=== PATIENT | female | born 1995 | race Caucasian/White ===

== ENCOUNTER 2019-06-03 19:52 | Emergency (ER) | payer BC ==
[~2019-06-03] VITALS: Ht 154.9 cm; Wt 47.0 kg
--- NOTE | 2019-06-03 20:03 | PHYS DOC ---
Past History Past Medical History: Constipation, UTI Adult General Chief Complaint Chief Complaint: ".. I ve been having some abd. pain problems...last week I had some bright red streaks in my stool.. and this lower Lt tenderness.... I have a GI apt this next week..... but pain is worse tonight..." HPI HPI Patient is a 23 year old female who presents with above hx and complaints of generalized abdomen pain. Patient does give history of bright red blood with stools last week. This problem has resolved and has normal colored stools now. Patient has been eating today, ,chicken nuggets lunch and a chicken sandwich at dinner. Patient works in a daycare. Patient has had a lot of urinary tract infections including one admission for urosepsis/pyelonephritis. Patient normally follows with Dr. Heart at [place]. She is 1 term 1. Patient states she's had increasing abdomen problems since Halloween. No history of colitis or Crohn's with her family members. No history of travel. No history of trauma. Patient denies any history immunosuppression. Patient just completed her period Review of Systems Review of Systems Constitutional: Denies fever or chills [] Eyes: Denies change in visual acuity, redness, or eye pain [] HENT: Denies nasal congestion or sore throat [] Respiratory: Denies cough or shortness of breath [] Cardiovascular: No additional information not addressed in HPI [] GI: Complaints of abdominal pain, nausea. Denies, vomiting, diarrhea []. Does have history of red streaks stools last week. : Denies dysuria or hematuria [] Musculoskeletal: Denies back pain or joint pain [] Integument: Denies rash or skin lesions [] Neurologic: Denies headache, focal weakness or sensory changes [] Endocrine: Denies polyuria or polydipsia [] All other systems were reviewed and found to be within normal limits, except as documented in this note. Family History Family History Noncontributory Current Medications Current Medications See nursing for home meds Allergies Allergies No known drug allergies Physical Exam Physical Exam Constitutional: Well developed, well nourished, moderate acute distress, non- toxic appearance. [] HENT: Normocephalic, atraumatic, bilateral external ears normal, oropharynx moist, no oral exudates, nose normal. [] Eyes: PERRLA, EOMI, conjunctiva normal, no discharge. [] Neck: Normal range of motion, no tenderness, supple, no stridor. [] Cardiovascular:Heart rate regular rhythm, no murmur [] Lungs & Thorax: Bilateral breath sounds clear to auscultation [] Abdomen: Bowel sounds normal, soft, generalized. In Umbilicus tenderness, has some rebound to left upper and mid abdomen, no masses, no pulsatile masses. Umbilicus scar. Very distended. Skin: Warm, dry, no erythema, no rash. [] Back: No tenderness, no CVA tenderness. [] Extremities: No tenderness, no cyanosis, no clubbing, ROM intact, no edema. [] No true psoas sign Neurologic: Alert and oriented X 3, normal motor function, normal sensory function, no focal deficits noted. [] Psychologic: Affect anxious, judgement normal, mood normal. [] EKG EKG [] Radiology/Procedures Radiology/[place] [address] IMAGING REPORT Signed PATIENT: LUCAS LYNN AACCOUNT: [id number] : 1995 LOCATION: ER AGE: 23 SEX: F EXAM STATUS: REG ER ORD. PHYSICIAN: DEREK BECKWITH MD REASON: pain, LLQ, BLOODY STOOL, X 1 WEEK AGO, OMNI 300, 75ml PROCEDURE: CT ABD PELV W/ORAL&IV CONTRAST Study: CT abdomen/pelvis with intravenous contrast Indication: Left lower quadrant pain. Bloody stools. Comparison: None. Technique: Helical CT imaging performed of the abdomen and pelvis after the intravenous administration of 75 cc Omnipaque 300 contrast. Sagittal and coronal reformats were obtained. One or more of the following individualized dose reduction techniques were utilized for this examination: 1. Automated exposure control 2. Adjustment of the mA and/or kV according to patient size 3. Use of iterative reconstruction technique. Findings: Unremarkable liver, gallbladder, pancreas, spleen and adrenal glands. Within the interpolar right kidney, 2 mm nonobstructing nephrolithiasis. No renal stone seen on the left. No hydroureteronephrosis. Unremarkable urinary bladder. Thickened endometrium which is not atypical given patient age. Collapsing ovarian cyst on the left, image 58 series 2. Unremarkable right adnexa. No discrete abnormality of the colon is identified to account for the patient's reported bloody stools. A portion of the appendix is believed to be seen along the dome of the uterus, image 55 series 2 and appears within normal limits. Orally administered contrast passes throughout the entirety of the small bowel without obstruction. The stomach is distended with ingested material. There are scattered loops of small bowel which are thick walled such as at the mid abdomen on image 33 series 2. Unremarkable major vascular structures. Free fluid in the pelvis and measures intermediate in density between 20 and 30 Hounsfield units however streak artifact from wires external to the patient may alter measurements. No free air. Unremarkable body wall soft tissues. Unremarkable osseous structures. Impression: 1. Small to moderate volume free fluid within the pelvis which measures intermediate density however accurate measuring of density is slightly degraded due to streak artifact from wires along the anterior aspect of the body. Given the presence of a collapsing cystic structure within the left ovary, a ruptured hemorrhagic cyst is a consideration. As clinically warranted, pelvic sonography could be performed to evaluate for the complexity of this fluid. 2. No colonic abnormality seen to account for the patient's reported bloody stools. Note is made that there is wall thickening of scattered loops of small bowel. This could be within the broad range of normal for this patient or represent a nonspecific enteritis. No obstruction or perforation. 3. Nonobstructing 2 mm interpolar nephrolithiasis on the right. Electronically signed by: RODOLFO POST MD (06/03/2019 11:37 PM) [facility] DICTATED AND SIGNED BY: RODOLFO POST MD DATE: 06/03/19 7822 CC: DEREK BECKWITH MD; CIRO ZHOU APRN ~ [address] [address] IMAGING REPORT Signed PATIENT: LUCAS LYNN AACCOUNT: [id number] : 1995 LOCATION: ER AGE: 23 SEX: F EXAM STATUS: REG ER ORD. PHYSICIAN: DEREK BECKWITH MD REASON: pain PROCEDURE: ACUTE ABDOMEN SERIES Study: ACUTE ABDOMEN SERIES Indication: Pain. Comparison: None. Findings: The lung quintero are clear. Unremarkable cardiomediastinal silhouette. Nonobstructive bowel gas pattern. Prominent amount of well-formed stool seen at the left upper quadrant. Impression: 1. Nonobstructive bowel gas pattern. 2. Prominent amount of well-formed stool seen at the left upper quadrant. Electronically signed by: RODOLFO POST MD (06/03/2019 10:31 PM) [facility] DICTATED AND SIGNED BY: RODOLFO POST MD DATE: 06/03/192230 Course & Med Decision Making Course & Med Decision Making Pertinent Labs and Imaging studies reviewed. (See chart for details) [ CC: DEREK BECKWITH MD; CIRO ZHOU DRAWING PRESS OPERATOR ~ 1. Abdomen Pain[] 2. Anemia hemoglobin 11.7 with microcytic hypochromic indices 70/22] 3. Constipation 4. Lt. Hemorrhagic Ovarian Cyst Pt . to stay on clear fluid diet only x 48 hrs. No solids or milk products. Push fluids. Show expect some cramping and diarrhea with passage of stool. Follow up with primary. Re-exam if no improvement of pain. Consider LEAF [employer] SCRAPER/ OB consult for Ovarian cyst and possible US. Push fluids is a must. Tylenol and Ibuprofen for pain. Must follow up. Dragon Disclaimer Dragon Disclaimer This electronic medical record was generated, in whole or in part, using a voice recognition dictation system. Departure Departure: Disposition: 01 HOME/RESIDENCE PRIOR TO ADM Condition: STABLE Scripts Hydrocodone/Ibuprofen (HYDROCODONE-IBUPROFEN 7.5-200 ) 1 Each Tablet 1 TAB PO PRN Q6HRS PRN for PAIN, #30 TAB 0 Refills Prov: DEREK BECKWITH MD 06/04/19 Dragmayank Disclaimer This chart was dictated in whole or in part using Voice Recognition software in a busy, high-work load, and often noisy Emergency Department environment. It may contain unintended and wholly unrecognized errors or omissions. DEREK BECKWITH MD Jun 03, 2019 20:03
[2019-06-03] MEDS ORDERED: IV RINGERS SOLUTION,LACTATED 1,000 ML IV SCH (20:35)
[2019-06-03] MEDS ORDERED: ONDANSETRON PF 4 MG/2 ML VIAL. IVP ONE ×2 (20:45→23:30)
[2019-06-03] MEDS ORDERED: FAMOTIDINE 20 MG/2 ML VIAL IVP ONE (20:45)
[2019-06-03 20:51] LABS: BASO # 0.1 x10^3/uL (0.0-0.2); BASO % 1 % (0-3); EOS # 0.1 x10^3/uL (0.0-0.7); EOS % 1 % (0-3); HEMATOCRIT 37.3 % (36.0-47.0); HEMOGLOBIN 11.7 g/dL (12.0-15.5); LYMPH % 35 % (24-48); MEAN CORPUSCULAR HEMOGLOBIN 22 pg (25-35); MEAN CORPUSCULAR HGB CONC 31 g/dL (31-37); MEAN CORPUSCULAR VOLUME 70 fL (79-100); MONO # 0.7 x10^3/uL (0.0-1.1); MONO % 8 % (0-9); NEUT # 4.7 x10^3uL (1.8-7.7); NEUT % 55 % (31-73); PLATELET COUNT 291 x10^3/uL (140-400); RED BLOOD COUNT 5.35 x10^6/uL (3.50-5.40); RED CELL DISTRIBUTION WIDTH 18.8 % (11.5-14.5); WHITE BLOOD COUNT 8.5 x10^3/uL (4.0-11.0)
[2019-06-03 21:02] LABS: ALBUMIN 3.8 g/dL (3.4-5.0); CALCIUM 8.4 mg/dL (8.5-10.1); CREATININE 0.6 mg/dL (0.6-1.0); DIRECT BILIRUBIN 0.1 mg/dL (0.0-0.2); GFR 126.2; POTASSIUM 3.3 mmol/L (3.5-5.1); TOTAL BILIRUBIN 0.2 mg/dL (0.2-1.0); TOTAL PROTEIN 7.5 g/dL (6.4-8.2)
[2019-06-03 21:04] LABS: BARBITURATES NEG (NEG); BENZODIAZEPINES NEG (NEG); CANNABINOIDS NEG (NEG); COCAINE NEG (NEG); METHADONE NEG (NEG); OPIATES NEG (NEG); PHENCYCLIDINE NEG (NEG)
[2019-06-03 21:05] LABS: AMPHETAMINE/METHAMPHETAMINE NEG (NEG)
[2019-06-03 21:24] LABS: BACTERIA,URINE FEW /HPF (0-FEW); BILIRUBIN,URINE NEG (NEG); CLARITY,URINE CLEAR; COLOR,URINE YELLOW; GLUCOSE,URINE NEG (NEG); NITRITE,URINE NEG (NEG); RBC,URINE 0 /HPF (0-2); SQUAMOUS EPITHELIAL CELL,UR MANY /LPF; UROBILINOGEN,URINE 1 mg/dL (0.2 mg/dL)
[2019-06-03 21:39] LABS: ANISOCYTOSIS SLIGHT; HYPOCHROMIA MOD; MICROCYTOSIS MOD
[2019-06-03 21:41] LABS: PLT ESTIMATE ADEQUATE (ADEQUATE)
[2019-06-03] MEDS ORDERED: IOHEXOL 240 MG/ML 50ML VIAL. PO ONE (22:00)
[2019-06-03] MEDS ORDERED: IOHEXOL 300 MG/ML 75 ML VIAL. IV ONE (22:00)
--- NOTE | 2019-06-03 22:34 | RAD ---
Study: ACUTE ABDOMEN SERIES Indication: Pain. Comparison: None. Findings: The lung quintero are clear. Unremarkable cardiomediastinal silhouette. Nonobstructive bowel gas pattern. Prominent amount of well-formed stool seen at the left upper quadrant. Impression: 1. Nonobstructive bowel gas pattern. 2. Prominent amount of well-formed stool seen at the left upper quadrant. Electronically signed by: RODOLFO POST MD (06/03/2019 10:31 PM) [employer]
[2019-06-03] MEDS ORDERED: MAGNESIUM CITRATE 296 ML SOLUTION. PO ONE (22:45)
--- NOTE | 2019-06-03 23:40 | RAD ---
Study: CT abdomen/pelvis with intravenous contrast Indication: Left lower quadrant pain. Bloody stools. Comparison: None. Technique: Helical CT imaging performed of the abdomen and pelvis after the intravenous administration of 75 cc Omnipaque 300 contrast. Sagittal and coronal reformats were obtained. One or more of the following individualized dose reduction techniques were utilized for this examination: 1. Automated exposure control 2. Adjustment of the mA and/or kV according to patient size 3. Use of iterative reconstruction technique. Findings: Unremarkable liver, gallbladder, pancreas, spleen and adrenal glands. Within the interpolar right kidney, 2 mm nonobstructing nephrolithiasis. No renal stone seen on the left. No hydroureteronephrosis. Unremarkable urinary bladder. Thickened endometrium which is not atypical given patient age. Collapsing ovarian cyst on the left, image 58 series 2. Unremarkable right adnexa. No discrete abnormality of the colon is identified to account for the patient's reported bloody stools. A portion of the appendix is believed to be seen along the dome of the uterus, image 55 series 2 and appears within normal limits. Orally administered contrast passes throughout the entirety of the small bowel without obstruction. The stomach is distended with ingested material. There are scattered loops of small bowel which are thick walled such as at the mid abdomen on image 33 series 2. Unremarkable major vascular structures. Free fluid in the pelvis and measures intermediate in density between 20 and 30 Hounsfield units however streak artifact from wires external to the patient may alter measurements. No free air. Unremarkable body wall soft tissues. Unremarkable osseous structures. Impression: 1. Small to moderate volume free fluid within the pelvis which measures intermediate density however accurate measuring of density is slightly degraded due to streak artifact from wires along the anterior aspect of the body. Given the presence of a collapsing cystic structure within the left ovary, a ruptured hemorrhagic cyst is a consideration. As clinically warranted, pelvic sonography could be performed to evaluate for the complexity of this fluid. 2. No colonic abnormality seen to account for the patient's reported bloody stools. Note is made that there is wall thickening of scattered loops of small bowel. This could be within the broad range of normal for this patient or represent a nonspecific enteritis. No obstruction or perforation. 3. Nonobstructing 2 mm interpolar nephrolithiasis on the right. Electronically signed by: RODOLFO POST MD (06/03/2019 11:37 PM) [facility]
[2019-06-04] MEDS ORDERED: HYDR-1179 PO (00:11)
[2019-06-04] MEDS ORDERED: KETOROLAC 30 MG/ML VIAL. IVP ONE (00:30)
[2019-06-04 00:55] VITALS: BP 134/81
== END 2019-06-04 00:55 | disposition home or self-care (01) ==
LOC: ER 19:52
DX: N83.202 Unspecified ovarian cyst, left side (principal); K59.00 Constipation, unspecified; D50.9 Iron deficiency anemia, unspecified; Z87.440 Personal history of urinary (tract) infections
CPT/HCPCS: 36415; 74022; 74177; 80048; 80076; 80307; 81001; 81025; 82150; 83690; 85025; 85045; 86705; 86709; 86803; 87340; 96374; 96375; 96376; 99285; J1885; J2405; J3490; J7120; Q9966; Q9967; 96361

== ENCOUNTER 2019-08-21 17:51 | Emergency (ER) | payer BC ==
[~2019-08-21] VITALS: Ht 154.9 cm; Wt 47.0 kg
[~2019-08-21 17:51] MED LIST: HYDR-1179 PO
[2019-08-21 18:00] VITALS: BP 135/79
[2019-08-21] MEDS ORDERED: MAGN296S68 PO (18:19)
[2019-08-21] MEDS ORDERED: SENN-121 PO (18:19)
--- NOTE | 2019-08-21 18:19 | PHYS DOC ---
Past History Past Medical History: Constipation, UTI Past Surgical History: No Surgical History Alcohol Use: None Drug Use: None Adult General Chief Complaint Chief Complaint: ABDOMINAL PAIN IN HPI HPI Patient is a 4-year-old female who 7 weeks gestation presents to the ED with left upper quadrant abdominal pain. She describes the pain as a dull discomfort that is localized to left upper quadrant. She has had a history of chronic constipation and was being seen by a sumo wrestler when it was found that she was . Her last bowel movement was this morning but she stated it was smaller in quantity compared to normal. She stated that her last normal bowel movement was roughly 2 weeks prior but she has had small bowel movements since. She denied any blood in her stool or pain with defecation. She has not had any vaginal discharge or bleeding at current time. She denies fever, chills, nausea, and vomiting as well as dysuria and increased urinary frequency. She is currently taking a once daily stool softener but states that he has had little effect on her. She has also tried a course of MiraLAX 2 days prior. She rates her current pain as a 6 out of 10. Review of Systems Review of Systems Constitutional: Denies fever or chills Cardiovascular: Denies chest pain or palpitations GI: Admits abdominal pain, denies nausea and vomiting : Denies dysuria or hematuria, and vaginal bleeding/discharge Integument: Denies rash or skin lesions Neurologic: Denies headache, focal weakness or sensory changes Complete systems were reviewed and found to be within normal limits, except as documented in this note. Allergies Allergies Allergies Coded Allergies Type Severity Reaction Last Updated Verified No Known Drug Allergies 06/03/19 No Physical Exam Physical Exam Constitutional: Well developed, well nourished, no acute distress, uncomfortable appearance HENT: Normocephalic, atraumatic, oropharynx moist Eyes: EOMI, conjunctiva normal, no discharge Neck: Normal range of motion, no tenderness, Cardiovascular: Heart rate normal, regular rhythm Lungs & Thorax: Bilateral breath sounds clear to auscultation, no wheezing Abdomen: Soft, tenderness throughout abdomen worse in left upper quadrant Skin: Warm, dry, no erythema, no rash Extremities: No tenderness, ROM intact, no edema Neurologic: Alert and oriented X 3, normal motor function, normal sensory function, no focal deficits noted Psychologic: Affect normal, judgment normal Current Patient Data Vital Signs Vital Signs Date Time Temp Pulse Resp B/P (MAP) Pulse Ox O2 Delivery O2 Flow Rate FiO2 08/21/19 18:00 98.2 130 16 135/79 (97) 97 Room Air EKG EKG [] Radiology/Procedures Radiology/Procedures [] Course & Med Decision Making Course & Med Decision Making Pertinent Labs and Imaging studies reviewed. (See chart for details) Patient arrived to the ED with complaint of left upper quadrant abdominal pain for the last 3 hours. He stated that she had a history of chronic constipation and was seeing a sumo wrestler prior to finding out she was . She denied any nausea, vomiting, fever, and chills. She had no symptoms of a UTI infection and no vaginal bleeding or discharge. Due to these findings and lack of vaginal bleeding the abdominal pain is most likely secondary to chronic constipation. A prescription for Rossy-Colace was prescribed and a one-time dose max citrate was prescribed. She was educated on how to use the medications. Patient stable for discharge with outpatient follow-up with PCP. Discussed findings and plan with patient, who acknowledge understanding and agreement. Dragon Disclaimer Dragon Disclaimer This electronic medical record was generated, in whole or in part, using a voice recognition dictation system. Departure Departure: Impression: Primary Impression: Constipation Additional Impression: Disposition: HOME, SELF-CARE Condition: STABLE Referrals: CIRO ZHOU APRN (PCP) Patient Instructions: ABCs of , Abdominal Pain During , Nhtx-vw-Rxfy, Constipation, Adult, Xibv-id-Icjt Scripts Magnesium Citrate (MAGNESIUM CITRATE) 296 Ml Solution 296 ML PO ONCE for Constipation, #296 ML Prov: ELYSE COLON DO 08/21/19 Sennosides/Docusate Sodium (Colace 2-in-1 Tablet) 1 Each Tablet 1-2 TAB PO QHS for Constipation for 30 Days, #60 TAB 0 Refills Prov: ELYSE COLON DO 08/21/19 Problem Qualifiers Primary Impression: Constipation Constipation type: unspecified constipation type Qualified Codes: K59.00 - Constipation, unspecified Additional Impression: Weeks of gestation: unspecified Qualified Codes: Z34.90 - Encounter for supervision of normal , unspecified, unspecified trimester ELYSE COLON DO Aug 21, 2019 18:19
== END 2019-08-21 18:27 | disposition home or self-care (01) ==
LOC: ER 17:51
DX: O99.611 Diseases of the digestive system complicating pregnancy, first trimester (principal); K59.00 Constipation, unspecified; Z3A.01 Less than 8 weeks gestation of pregnancy
CPT/HCPCS: 99282

== ENCOUNTER 2019-09-11 18:04 | Emergency (ER) | payer BC, OTHER ==
[~2019-09-11] VITALS: Ht 154.9 cm; Wt 47.3 kg
[~2019-09-11 18:04] MED LIST changes: +MAGN296S68 PO; +SENN-121 PO
[2019-09-11 18:17] VITALS: BP 124/71
[2019-09-11 19:11] LABS: BACTERIA,URINE MOD /HPF (0-FEW); BILIRUBIN,URINE NEG (NEG); CLARITY,URINE CLOUDY; COLOR,URINE YELLOW; GLUCOSE,URINE NEG (NEG); NITRITE,URINE POS (NEG); RBC,URINE OCC /HPF (0-2); UROBILINOGEN,URINE 0.2 mg/dL (0.2 mg/dL)
[2019-09-11 19:12] LABS: SQUAMOUS EPITHELIAL CELL,UR MOD /LPF
--- NOTE | 2019-09-11 19:25 | PHYS DOC ---
Past History Past Medical History: No Pertinent History, Constipation, UTI Past Surgical History: No Surgical History Smoking: Non-smoker Alcohol Use: None Drug Use: None Adult General Chief Complaint Chief Complaint: BACK PAIN - NO INJURY HPI HPI Patient is a 24-year-old female who presents with right lower back pain that began yesterday morning as a dull ache. The pain worsened today. She describes the pain as a dull ache that comes and goes and rates it as a 5/10. She was diagnosed with a UTI on 08/30 and was given 7 days of antibiotics that she was supposed to take twice a day. She does not know the name of the antibiotic. She took the antibiotic for 5 days. She stated that after 5 days her symptoms had improved and she began having some vaginal itching and was concerned she was getting a yeast infection. Due to this, she stopped taking the antibiotics after 5 days. She denies fevers, nausea, vomiting, abdominal pain, hematuria, vaginal discharge or bleeding. She is currently 8 weeks and sees an OB at [facility]. Review of Systems Review of Systems Constitutional: Denies fever or chills Eyes: Denies redness or eye pain HENT: Denies nasal congestion or sore throat Respiratory: Denies cough or shortness of breath Cardiovascular: Denies chest pain or palpitations GI: Denies abdominal pain, nausea, or vomiting : Reports dysuria, denies hematuria, vaginal discharge, vaginal bleeding Musculoskeletal: Reports back pain, denies joint pain Integument: Denies rash or skin lesions Neurologic: Denies headache, focal weakness or sensory changes Complete systems were reviewed and found to be within normal limits, except as documented in this note. Family History Family History No pertinent family history. Allergies Allergies Allergies Coded Allergies Type Severity Reaction Last Updated Verified No Known Drug Allergies 09/11/19 No Physical Exam Physical Exam Constitutional: Well developed, well nourished, no acute distress, non-toxic appearance HENT: Normocephalic, atraumatic, oropharynx moist Eyes: EOMI, conjunctiva normal, no discharge Neck: Normal range of motion, no tenderness, supple Cardiovascular: Heart rate normal, regular rhythm Lungs & Thorax: Bilateral breath sounds clear to auscultation, no wheezing Abdomen: Soft, no tenderness Skin: Warm, dry, no erythema, no rash Back: CVA tenderness on the right, no tenderness on the left Extremities: No tenderness, ROM intact, no edema Neurologic: Alert and oriented X 3, normal motor function, normal sensory function, no focal deficits noted Psychologic: Affect normal, judgment normal Current Patient Data Vital Signs Vital Signs Date Time Temp Pulse Resp B/P (MAP) Pulse Ox O2 Delivery O2 Flow Rate FiO2 09/11/19 18:17 98.5 90 18 124/71 (88) 100 Room Air EKG EKG [] Radiology/Procedures Radiology/Procedures [] Course & Med Decision Making Course & Med Decision Making Pertinent Labs reviewed. (See chart for details) Patient is a 24-year-old female who presented to the ED with right lower back pain that began yesterday morning and worsened this morning. She was recently diagnosed with a UTI on 08/30 and was given 7 days of antibiotics, however she only took 5 date. Urinalysis was performed and showed positive nitrite in 11-20 WBCs, along with moderate bacteria. Patient was given fluids and Tylenol in the ED. Empiric Rocephin provided. Labs obtained and posted to chart. Patient also concerned for future yeast infection with antibiotic therapy. Prophylactic Diflucan therefore provided. Patient stable for discharge with outpatient follow-up with PCP/OB. Discussed findings and plan with patient, who acknowledges understanding and agreement. Dragon Disclaimer Dragon Disclaimer This electronic medical record was generated, in whole or in part, using a voice recognition dictation system. Departure Departure: Impression: Primary Impression: Pyelonephritis Additional Impression: Disposition: HOME, SELF-CARE Condition: STABLE Referrals: CIRO ZHOU APRN (PCP) Patient Instructions: ABCs of , Pyelonephritis, Adult, Sbor-km-Tnja Scripts Fluconazole (DIFLUCAN) 200 Mg Tablet 1 TAB PO DAILY PRN for YEAST, #2 TAB Start for symptoms of a yeast infection. May take additional dose 1 week after antibiotic therapy if symptoms persist. Prov: ELYSE COLON DO 09/11/19 Cephalexin (KEFLEX) 500 Mg Capsule 1 CAP PO TID for Kidney infection for 7 Days, #21 CAP 0 Refills Prov: ELYSE COLON DO 09/11/19 Problem Qualifiers Additional Impression: Weeks of gestation: unspecified Qualified Codes: Z34.90 - Encounter for supervision of normal , unspecified, unspecified trimester ELYSE COLON DO Sep 11, 2019 19:25
[2019-09-11] MEDS ORDERED: CEPH-264 PO (19:33)
[2019-09-11] MEDS ORDERED: IV NORMAL SALINE 50ML 50 ML ONE (19:37)
[2019-09-11] MEDS ORDERED: cefTRIAXone SODIUM 1 GM VIAL ONE (19:38)
[2019-09-11] MEDS ORDERED: ACETAMINOPHEN 500 MG TABLET PO ONE (19:45)
[2019-09-11] MEDS ORDERED: IV NORMAL SALINE 1,000ML 1,000 ML IV ONE (19:45)
[2019-09-11 19:47] LABS: BASO % 0 % (0-3); EOS # 0.1 x10^3/uL (0.0-0.7); EOS % 1 % (0-3); HEMATOCRIT 34.6 % (36.0-47.0); HEMOGLOBIN 10.5 g/dL (12.0-15.5); LYMPH # 2.2 x10^3/uL (1.0-4.8); LYMPH % 24 % (24-48); MEAN CORPUSCULAR HEMOGLOBIN 22 pg (25-35); MEAN CORPUSCULAR HGB CONC 31 g/dL (31-37); MEAN CORPUSCULAR VOLUME 71 fL (79-100); MONO # 0.6 x10^3/uL (0.0-1.1); MONO % 7 % (0-9); NEUT % 67 % (31-73); PLATELET COUNT 260 x10^3/uL (140-400); RED CELL DISTRIBUTION WIDTH 17.7 % (11.5-14.5); WHITE BLOOD COUNT 8.9 x10^3/uL (4.0-11.0)
[2019-09-11 20:00] LABS: CALCIUM 8.4 mg/dL (8.5-10.1); CREATININE 0.4 mg/dL (0.6-1.0); GFR 199.6; POTASSIUM 3.6 mmol/L (3.5-5.1)
[2019-09-11 20:06] LABS: ALBUMIN 3.6 g/dL (3.4-5.0); ALBUMIN/GLOBULIN RATIO 1.1 (1.0-1.7); MAGNESIUM 1.9 mg/dL (1.8-2.4); TOTAL BILIRUBIN 0.2 mg/dL (0.2-1.0)
[2019-09-11 20:10] LABS: HYPOCHROMIA SLIGHT; PLT ESTIMATE ADEQUATE (ADEQUATE)
[2019-09-11 20:11] LABS: ANISOCYTOSIS SLIGHT; MICROCYTOSIS MOD
[2019-09-11 20:12] LABS: OVALOCYTES OCC
[2019-09-11] MEDS ORDERED: FLUC200T PO (20:47)
== END 2019-09-11 20:45 | disposition home or self-care (01) ==
LOC: ER 18:04
DX: O23.01 Infections of kidney in pregnancy, first trimester (principal); O23.41 Unspecified infection of urinary tract in pregnancy, first trimester; Z3A.08 8 weeks gestation of pregnancy
CPT/HCPCS: 36415; 80053; 81001; 83605; 83690; 83735; 84702; 85025; 87086; 96365; 99284; J0696; J7030

== ENCOUNTER 2021-12-03 01:49 | Emergency (ER) | payer BC, OTHER ==
[~2021-12-03] VITALS: Ht 162.6 cm; Wt 50.0 kg
[~2021-12-03 01:49] MED LIST changes: +CEPH-264 PO; +FLUC200T PO
--- NOTE | 2021-12-03 02:02 | PHYS DOC ---
Past History Past Medical History: No Pertinent History, Constipation, UTI Past Surgical History: No Surgical History Smoking: Non-smoker Alcohol Use: None Drug Use: None General Adult HPI: HPI: "...I got really severe Lt. flank pain.. It was all sudden.. I dont think it is constipation.. I ve been here twice before .. and it was constipation.. but I ve also had UTI and pyelonephritis... " Patient is a 26 year old female who presents with above hx and complaints left flank pain that started tonight. No history of trauma. No history of travel. Denies history of ill contacts. Does have some mild dysuria. Patient has had previous history of ED evaluations for constipation x2 and pyelonephritis. No prior history of kidney stones with her family members. No prior history of colitis with her family members. Patient denies any history of ovarian cyst. Patient denies any history immunosuppression. Patient has been gravid 2 term 2 vaginally. Pt. follos with Suderman as primary. Review of Systems: Review of Systems: Constitutional: Denies fever or chills Eyes: Denies change in visual acuity HENT: Denies nasal congestion or sore throat Respiratory: Denies cough or shortness of breath Cardiovascular: Denies chest pain or edema GI: Complains abdominal pain, nausea,.. Complains of left flank pain. Denies vomiting, bloody stools or diarrhea. Some history of constipation : Complaints dysuria Musculoskeletal: Denies back pain or joint pain Integument: Denies rash Neurologic: Denies headache, focal weakness or sensory changes Endocrine: Denies polyuria or polydipsia Lymphatic: Denies swollen glands Psychiatric: Denies depression or anxiety Family History: Family History: Noncontributory to presentation Current Medications: Current Meds: See nursing for home meds Allergies: Allergies: Allergies Coded Allergies Type Severity Reaction Last Updated Verified No Known Drug Allergies 09/11/19 No Physical Exam: PE: Constitutional: Well developed, well nourished, in acute distress, non-toxic appearance. [] HENT: Normocephalic, atraumatic, bilateral external ears normal, oropharynx moist, no oral exudates, nose normal. [] Eyes: PERRLA, EOMI, conjunctiva normal, no discharge. [] Neck: Normal range of motion, no tenderness, supple, no stridor. [] Cardiovascular:Heart rate regular rhythm, no murmur [] Lungs & Thorax: Bilateral breath sounds equal apex with few scattered wheezes auscultation [] Abdomen: Bowel sounds decreased, soft, left flank and abdomen tenderness, no masses, no pulsatile masses. Rebound to the left flank and abdomen Skin: Warm, dry, no erythema, no rash. Tattoos. Back: No tenderness, left CVA tenderness. [] Extremities: No tenderness, no cyanosis, no clubbing, ROM intact, no edema. No cording. No psoas sign. Neurologic: Alert and oriented X 3, normal motor function, normal sensory function, no focal deficits noted. [] Psychologic: Affect just, judgement normal, mood normal. [] EKG: EKG: [] Radiology/Procedures: Radiology/Procedures: [address] [id number] IMAGING REPORT Signed PATIENT: LUCAS LYNN AACCOUNT: [id number] : 1995 LOCATION: ER AGE: 26 SEX: F EXAM STATUS: REG ER ORD. PHYSICIAN: DEREK BECKWITH MD REASON: flank pain PROCEDURE: CT ABDOMEN PELVIS WO CONTRAST PQRS Compliance Statement: One or more of the following individualized dose reduction techniques were utilized for this examination: 1. Automated exposure control 2. Adjustment of the mA and/or kV according to patient size 3. Use of iterative reconstruction technique CT abdomen/pelvis without contrast 12/03/2021 4:39 AM INDICATION: Flank pain COMPARISON: CT abdomen/pelvis 06/03/2019 TECHNIQUE: Multiple axial CT images of the abdomen and pelvis were obtained without intravenous contrast. Coronal and sagittal reformats are provided. FINDINGS: Visualized portions of the lung bases are clear. Heart size is within normal limits. Evaluation of the solid abdominal viscera is limited by lack of intravenous contrast. No suspicious hepatic masses are identified. Spleen, bilateral adrenal glands, and pancreas are normal in appearance. Gallbladder is present without adjacent inflammatory changes. The abdominal aorta is normal in course and caliber. There are no pathologically enlarged lymph nodes in the abdomen and pelvis. There is no abdominal free fluid. There is no free intraperitoneal air. There are at least 3 1-2 mm nonobstructing calculi in the left kidney. There is a 2 mm calculus at the distal aspect of the left ureterovesicular junction (series 2, image 107). Mild left with hydroureteronephrosis. Right kidney is normal in appearance. Urinary bladder is normal in appearance given degree of distention. Uterus is normal in appearance. Follicular changes identified within the adnexa bilaterally. Small and large bowel are normal in caliber. There is no evidence for bowel obstruction. There are no pericolonic inflammatory changes. A normal, nondilated appendix is visualized without adjacent inflammatory changes. No suspicious osseous abnormality is identified. IMPRESSION: 2 mm calculus identified at the left ureterovesicular junction or dependent portion the urinary bladder with associated mild left hydroureteronephrosis. Correlate with any resolution of symptoms. Additional nonobstructing calculi identified within the left kidney measuring 1-2 mm. Electronically signed by: Ellie Kapadia MD (12/03/2021 5:10 AM) [facility] [][place] [address] IMAGING REPORT Signed PATIENT: LUCAS LYNN AACCOUNT: [id number] : 1995 LOCATION: ER AGE: 26 SEX: F EXAM STATUS: REG ER ORD. PHYSICIAN: DEREK BECKWITH MD REASON: pain PROCEDURE: ACUTE ABDOMEN SERIES Acute Abdominal Series: 12/03/2021 3:44 AM Reason for study: Pain. Comparison studies: None. Technique: Frontal view of the chest was obtained along with supine and upright views of the abdomen. Findings: Nonobstructive bowel gas pattern. No air fluid levels or free air. Mild gastric wall thickening may be secondary to underdistention versus gastritis. The lungs are clear without acute consolidative opacity. No pleural effusion or pneumothorax. The cardiac and mediastinal contours are normal. Visualized osseous structures are intact. IMPRESSION: 1. Nonobstructed bowel gas pattern. Mild gastric wall thickening may be secondary to underdistention versus gastritis. 2. No acute cardiopulmonary findings. Electronically signed by: Ellie Kapadia MD (12/03/2021 4:09 AM) [facility] DICTATED AND SIGNED BY: ELLIE KAPADIA MD DATE: 12/03/21407 CC: DEREK BECKWITH MD; CIRO ZHOU APRN ~ Heart Score: C/O Chest Pain: N/A Risk Factors: Risk Factors: DM, Current or recent (<one month) smoker, HTN, HLP, family history of CAD, obesity. Risk Scores: Score 0 - 3: 2.5% MACE over next 6 weeks - Discharge Home Score 4 - 6: 20.3% MACE over next 6 weeks - Admit for Clinical Observation Score 7 - 10: 72.7% MACE over next 6 weeks - Early Invasive Strategies Course & Med Decision Making: Course & Med Decision Making Pertinent Labs and Imaging studies reviewed. (See chart for details) Push fluids. Take Zofran 8 mg at 4 times a day for nausea and vomiting. Take Tylenol and ibuprofen for pain for more pain may take Vicoprofen up to 4 times a day.. Take Flomax daily until stone is passed. Follow-up primary care. Consider follow-up with - urology. Impression: 1. Abdomen and Lt Flank Pain 2. Anemia Hgb 11.0 with EVC 104 and HC 20 3. Lt. UVJ 2mm Kidney stone [] Dragon Disclaimer: Dragon Disclaimer: This electronic medical record was generated, in whole or in part, using a voice recognition dictation system. Departure Departure: Referrals: CIRO ZHOU APRN (PCP) Scripts Tamsulosin Hcl (FLOMAX) 0.4 Mg Cap.er.24h 0.4 MG PO DAILY for until stone passed, #30 CAP.SR Prov: DEREK BECKWITH MD 12/03/21 Ondansetron Hcl (ONDANSETRON HCL) 4 Mg Tablet 8 MG PO QIDPRN PRN for NAUSEA/VOMITING, #30 TAB Prov: DEREK BECKWITH MD 12/03/21 Hydrocodone/Ibuprofen (HYDROCODONE-IBUPROFEN 7.5-200 ) 1 Each Tablet 1 TAB PO PRN Q6HRS PRN for PAIN, #30 TAB 0 Refills Prov: DEREK BECKWITH MD 12/03/21 Dragon Disclaimer This chart was dictated in whole or in part using Voice Recognition software in a busy, high-work load, and often noisy Emergency Department environment. It may contain unintended and wholly unrecognized errors or omissions. DEREK BECKWITH MD December 03, 2021 02:01
[2021-12-03] MEDS ORDERED: FAMOTIDINE 20 MG/2 ML VIAL IVP ONE (02:30)
[2021-12-03] MEDS ORDERED: ONDANSETRON PF 4 MG/2 ML VIAL. IVP ONE (02:30)
[2021-12-03] MEDS ORDERED: IV RINGERS SOLUTION,LACTATED 1,000 ML IV SCH (02:30)
[2021-12-03 02:57] LABS: BASO # 0.1 x10^3/uL (0.0-0.2); BASO % 1 % (0-3); EOS # 0.1 x10^3/uL (0.0-0.7); EOS % 1 % (0-3); HEMATOCRIT 35.9 % (36.0-47.0); LYMPH # 2.5 x10^3/uL (1.0-4.8); LYMPH % 27 % (24-48); MEAN CORPUSCULAR HEMOGLOBIN 20 pg (25-35); MEAN CORPUSCULAR HGB CONC 31 g/dL (31-37); MEAN CORPUSCULAR VOLUME 64 fL (79-100); MONO # 0.6 x10^3/uL (0.0-1.1); MONO % 7 % (0-9); NEUT # 5.9 x10^3uL (1.8-7.7); NEUT % 64 % (31-73); PLATELET COUNT 337 x10^3/uL (140-400); RED BLOOD COUNT 5.64 x10^6/uL (3.50-5.40); RED CELL DISTRIBUTION WIDTH 20.2 % (11.5-14.5); WHITE BLOOD COUNT 9.2 x10^3/uL (4.0-11.0)
[2021-12-03] MEDS ORDERED: MAGNESIUM HYDROXIDE 2,400 MG/30 ML ORAL.SUSP. PO ONE (03:00)
[2021-12-03 03:27] LABS: CALCIUM 9.5 mg/dL (8.5-10.1); CREATININE 0.7 mg/dL (0.6-1.0); GFR 102.8; POTASSIUM 3.6 mmol/L (3.5-5.1)
[2021-12-03 03:32] LABS: DIRECT BILIRUBIN 0.1 mg/dL (0.0-0.2); TOTAL BILIRUBIN 0.3 mg/dL (0.2-1.0); TOTAL PROTEIN 7.3 g/dL (6.4-8.2)
[2021-12-03] MEDS ORDERED: KETOROLAC 30 MG/ML VIAL. IVP ONE (04:00)
[2021-12-03 04:07] LABS: CLARITY,URINE CLEAR; COLOR,URINE YELLOW; GLUCOSE,URINE NEG (NEG); NITRITE,URINE NEG (NEG); RBC,URINE >40 /HPF (0-2); UROBILINOGEN,URINE 0.2 mg/dL (0.2 mg/dL)
[2021-12-03 04:08] LABS: BACTERIA,URINE FEW /HPF (0-FEW); SQUAMOUS EPITHELIAL CELL,UR FEW /LPF; WBC,URINE OCC /HPF (0-4)
--- NOTE | 2021-12-03 04:12 | RAD ---
Acute Abdominal Series: 12/03/2021 3:44 AM Reason for study: Pain. Comparison studies: None. Technique: Frontal view of the chest was obtained along with supine and upright views of the abdomen. Findings: Nonobstructive bowel gas pattern. No air fluid levels or free air. Mild gastric wall thickening may b e secondary to underdistention versus gastritis. The lungs are clear without acute consolidative opacity. No pleural effusion or pneumothorax. The car diac and mediastinal contours are normal. Visualized osseous structures are intact. IMPRESSION: 1. Nonobstructed bowel gas pattern. Mild gastric wall thickening may be secondary to underdistention versus gastritis. 2. No acute cardiopulmonary findings. Electronically signed by: Paloma Lees MD (12/03/2021 4:09 AM) [facility]
[2021-12-03 04:49] LABS: INFLUENZA A PATIENT NEGATIVE (NEGATIVE); INFLUENZA B PATIENT NEGATIVE (NEGATIVE)
--- NOTE | 2021-12-03 05:12 | RAD ---
PQRS Compliance Statement: One or more of the following individualized dose reduction techniques were utilized for this examinat ion: 1. Automated exposure control 2. Adjustment of the mA and/or kV according to patient size 3. Use of iterative reconstruction technique CT abdomen/pelvis without contrast 12/03/2021 4:39 AM INDICATION: Flank pain COMPARISON: CT abdomen/pelvis 06/03/2019 TECHNIQUE: Multiple axial CT images of the abdomen and pelvis were obtained without intravenous contr ast. Coronal and sagittal reformats are provided. FINDINGS: Visualized portions of the lung bases are clear. Heart size is within normal limits. Evaluation of the solid abdominal viscera is limited by lack of intravenous contrast. No suspicious hepatic masses are identified. Spleen, bilateral adrenal glands, and pancreas are patria l in appearance. Gallbladder is present without adjacent inflammatory changes. The abdominal aorta is normal in course and caliber. There are no pathologically enlarged lymph nodes in the abdomen and pelvis. There is no abdominal free fluid. There is no free intraperitoneal air. There are at least 3 1-2 mm nonobstructing calculi in the left kidney. There is a 2 mm calculus at th e distal aspect of the left ureterovesicular junction (series 2, image 107). Mild left with hydrouret eronephrosis. Right kidney is normal in appearance. Urinary bladder is normal in appearance given deg ree of distention. Uterus is normal in appearance. Follicular changes identified within the adnexa bilaterally. Small and large bowel are normal in caliber. There is no evidence for bowel obstruction. There are no pericolonic inflammatory changes. A normal, nondilated appendix is visualized without adjacent infla mmatory changes. No suspicious osseous abnormality is identified. IMPRESSION: 2 mm calculus identified at the left ureterovesicular junction or dependent portion the urinary bladd er with associated mild left hydroureteronephrosis. Correlate with any resolution of symptoms. Additi onal nonobstructing calculi identified within the left kidney measuring 1-2 mm. Electronically signed by: Paloma Lees MD (12/03/2021 5:10 AM) [facility]
[2021-12-03 05:32] LABS: PLT ESTIMATE ADEQUATE (ADEQUATE)
[2021-12-03] MEDS ORDERED: HYDR-1179 PO (05:32)
[2021-12-03] MEDS ORDERED: ONDA-84 PO (05:32)
[2021-12-03] MEDS ORDERED: TAMS0.4C97 PO (05:32)
[2021-12-03 05:34] LABS: ANISOCYTOSIS SLIGHT; HYPOCHROMIA MOD; MICROCYTOSIS MOD
[2021-12-03 05:56] VITALS: BP 151/65
[2021-12-03] MEDS ORDERED: TAMSULOSIN 0.4 MG CAP.ER.24H. PO ONE (06:00)
== END 2021-12-03 05:57 | disposition home or self-care (01) ==
LOC: ER 01:49
DX: D64.9 Anemia, unspecified (principal); N13.2 Hydronephrosis with renal and ureteral calculous obstruction; Z20.822 Contact with and (suspected) exposure to COVID-19; Z87.440 Personal history of urinary (tract) infections
CPT/HCPCS: 36415; 74022; 74176; 80048; 80076; 81001; 81025; 82150; 83690; 84484; 85025; 87428; 96361; 96374; 96375; 99285; J1885; J2405; J3490; J7120